=== PATIENT | male | born 1990 | race African-American/Black ===

== ENCOUNTER 2022-03-29 06:34 | Emergency (ER) | payer OTHER ==
[~2022-03-29] VITALS: Ht 182.9 cm; Wt 100.0 kg
[2022-03-29 08:06] LABS: BASOPHILS % 1.3 % (0.0-2.0); EOSINOPHILS % 3.6 % (0.0-5.0); HEMATOCRIT. 34.7 % (42.0-52.0); HEMOGLOBIN. 11.1 g/dL (14.0-18.0); LYMPHOCYTES % 9.2 % (20.0-50.0); MEAN CORPUSCULAR HEMOGLOBIN 28.2 pg (28.0-32.0); MEAN CORPUSCULAR VOLUME 88.1 fL (80.0-94.0); MEAN PLATELET VOLUME 9.9 fl (7.4-10.4); MONOCYTES % 8.4 % (2.0-8.0); NEUTROPHILS % 77.5 % (40.0-76.0); PLATELET 201 x1000/uL (130-400); RED BLOOD CELL COUNT 3.94 mill/uL (4.7-6.1); RED CELL DISTRIBUTION WIDTH 18.2 % (11.6-14.6)
[2022-03-29 08:12] LABS: CHLORIDE 99 mEq/L (98-107)
[2022-03-29 09:42] VITALS: BP 190/130
== END 2022-03-29 10:57 | disposition home or self-care (01) ==
LOC: ER 06:34
DX: E87.70 Fluid overload, unspecified (principal); I50.9 Heart failure, unspecified
CPT/HCPCS: 36415; 71045; 80053; 83880; 84484; 85025; 93005; 99285